=== PATIENT | male | born 1960 | race Caucasian/White ===

== ENCOUNTER 2023-04-05 09:55 | Outpatient (CLI) | payer BC, SELFPAY ==
--- NOTE | ~2023-04-05 | XR_ITS ---
Clinical Indication: Prostate cancer PA and lateral views of the chest: Comparison: None Findings: The lungs are clear, without evidence of focal consolidation or pleural effusion. Cardiome diastinal silhouette is within normal limits. Bones and soft tissues are unremarkable. Impression: Normal chest. Reviewed, dictated and finalized at location . DEVELOPMENT MANAGER Impression: Normal chest.
--- NOTE | 2023-04-05 11:12 | ECG_ITS ---
Measurements Intervals [place] Rate: 65 P: 39 FL: 156 QRS: -1 QRSD: 110 T: 7 QT: 411 QTc: 430 Interpretive Statements SINUS RHYTHM BORDERLINE R WAVE PROGRESSION, ANTERIOR LEADS CONSIDER INFERIOR INFARCT, AGE INDETERMINATE BASELINE ARTIFACT- I, III, AVR, AVL, AVF, V1-V6 ABNORMAL ECG NO PREVIOUS ECG AVAILABLE FOR COMPARISON Electronically Signed On 04-05-2023 11:36:55 [employer] SALES REPRESENTATIVE by Jamel Baltazar D.O.
[2023-04-05 11:54] LABS: Basophils Absolute Auto 0.1 K/mm3 (0.0-0.1); Basophils Percent Auto 0.9 % (0.2-1.2); Eosinophils Absolute Auto 0.1 K/mm3 (0-0.3); Eosinophils Percent Auto 1.9 % (0-4.4); Hematocrit 49.7 % (42.0-52.0); Hemoglobin 16.6 g/dL (14.0-18.0); Immature Granulocyte Absolute 0.01 K/mm3 (0.00-0.031); Immature Granulocyte Percent A 0.2 % (0-0.5); Lymphocytes Absolute Auto 1.49 K/mm3 (0.9-3.2); Lymphocytes Percent Auto 27.6 % (18.3-44.2); Mean Corpuscular HGB Conc 33.4 g/dl (32-36); Mean Corpuscular Hemoglobin 30.2 pg (26-34); Mean Corpuscular Volume 90.4 fl (80-100); Mean Platelet Volume 9.4 fl (7.4-10.4); Monocytes Absolute Auto 0.5 K/mm3 (0.1-0.6); Monocytes Percent Auto 8.5 % (2.6-8.5); Neutrophils Absolute Auto 3.3 K/mm3 (1.3-6.7); Neutrophils Percent Auto 60.9 % (45.5-73.1); Platelet Count Result 239 k/mm3 (150-375); Red Cell Distribution Width 13.4 % (11.5-14.5); White Blood Count 5.4 K/mm3 (4.5-10.0)
[2023-04-05 11:56] LABS: Appearance Urine Clear (Clear); Bilirubin Urine Negative (Negative); Blood Urine Negative (Negative); Color Urine Yellow (Yellow); Glucose Urine UA Negative (Negative); Ketones Urine Negative (Negative); Leukocyte Esterase Ur Negative LEU/UL (Negative); Nitrate Urine Negative (Negative); Protein Urine Negative (Negative); Specific Grav Ur 1.008 (1.001-1.035); Urobilinogen Urine 0.2 mg/dL (<2.0); pH Urine 6.5 (5.0-9.0)
[2023-04-05 11:58] LABS: Add Urine Microscopic? NO
[2023-04-05 12:08] LABS: INR 0.9; Prothrombin Time 12.9 Seconds (11.1-14.7)
[2023-04-05 12:09] LABS: Alanine Aminotransferase 44 U/L (6-50); Albumin Level 4.9 g/dL (3.5-5.1); Alkaline Phosphatase 59 U/L (38-126); Anion Gap 9 mmol/L (8-16); Aspartate Amino Transferase 34 U/L (17-59); Bilirubin,Total 1.2 mg/dL (0.2-1.3); Blood Urea Nitrogen 16 mg/dL (9-20); Calcium 9.4 mg/dL (8.4-10.2); Carbon Dioxide 32 mmol/L (22-30); Chloride 99 mmol/L (98-107); Estimated Glomerular Filt Rate > 60; Glucose 98 mg/dL (65-110); Partial Thromboplastin Time 32.9 SECONDS (22.3-36.8); Potassium 4.2 mmol/L (3.4-5.0); Sodium 140 mmol/L (137-145)
== END 2023-04-05 09:56 | disposition home or self-care (01) ==
PROVIDERS: Visit Provider Urology
DX: C61 Malignant neoplasm of prostate (principal); Z01.818 Encounter for other preprocedural examination; R94.31 Abnormal electrocardiogram [ECG] [EKG]
CPT/HCPCS: 36415; 71046; 80053; 81003; 85025; 85610; 85730; 86850; 86900; 86901; 93005

== ENCOUNTER 2023-04-13 01:49 | Day surgery (SDC) | payer BC, SELFPAY ==
[2023-04-05 10:15] VITALS: BMI 27.1
--- NOTE | 2023-04-05 10:47 | PC.NURSE ---
Report to the Outpatient Waiting Room, entrance under the green pavilion located off [facility], at time __0600 on date _04/13/23 . Planned Procedure Time: __0730 . Time changes happen often and if your time is changed the preop area will call you the afternoon before. - You and your visitor will be asked to self-screen and do not enter if you have any COVID symptoms. - A mask is optional within the hospital at this time. Patients may have clear liquids (water, carbonated beverages, clear teas, apple juice) until 3 hours prior to surgery( 4:30 AM) with a maximum of 20 ounces. - No food from midnight until time of surgery - Infants may have breast milk until 4 hours before surgery, infant formula 6 hours prior to surgery. - Children will be allowed to drink immediately following surgery. If applicable, please bring a bottle or sippy cup to assist with drinking. Juice, water, soda, and popsicles are readily available. For infants on formula, please bring formula the day of surgery. Pacifiers are allowed. Take the following medications with a SIP of water the morning of surgery: __NONE DO NOT STOP ANY OF YOUR OTHER PRESCRIPTION MEDICATIONS PRIOR TO SURGERY ?EXCEPT THE FOLLOWING Medications to discontinue per physician __ALL VITAMINS AND SUPPLEMENTS 3 DAYS PRE OP.LAST DOSE 04/09/23 Please no make-up, nail telugu, hairspray, perfume, deodorant, or body powder the day of surgery. No jewelry (including any body piercings) or valuables the day of surgery, leave them at home. Please take a shower or bath the night before, or the morning of, surgery with an antibacterial soap. Wear comfortable, loose fitting clothing. Children are encouraged to wear pajamas. - Jewelry must be removed prior to entering the operating room. Rings and piercings that are not removed may be cut off. - The hospital will not accept responsibility for valuables. - Please leave all valuables, including medications, at home the day of surgery. If you are going home after surgery, a licensed warehouse delivery driver must drive you home. - NO public transportation without another adult if you receive anesthesia. - We recommend that an adult stay with you for 24 hours following discharge. - We also recommend that you do not drive, make important decision, drink alcoholic beverages, or take any drugs that were not prescribed by your health care provider for at least 24 hours after your discharge time. Follow any additional instructions given to you from your surgeon. If you or anyone in your household have experienced Covid symptoms in the past week, please notify your surgeon or the nurse liaison at the phone number below for possible testing. VERBAL AND WRITTEN instructions given to __PATIENT and asked if any additional questions and then verbalized understanding. Patient advised to call surgeon office or pre surgery nurse liaison [phone] if any additional questions.
--- NOTE | 2023-04-10 07:13 | P.HP_ITS ---
H&P: HPI History of Present Illness Date/Time: 04/10/23 07:13 Chief Complaint: Prostate cancer Narrative: 62-year-old gentleman who was initially diagnosed with prostate cancer in June 2021 after presenting with a PSA of 7.08. Prostate MRI showed suspicious lesions in his gland without evidence of extra prostatic extension or seminal vesicle invasion. There was a very small slightly abnormal area in his right femoral neck which was deemed not to be malignant, particularly given his low PSA. Prostate biopsy demonstrated 5 of 12 cores with [place] grade group 1, representing an NCCN low risk prostate cancer. On confirmatory biopsy 18 months later, however, he was found to have 9 of 12 cores involved with a similar grade prostate cancer. This had progressed to an unfavorable intermediate risk cancer and after discussion of options he is elected to proceed with a robotic prostatectomy with bilateral pelvic lymphadenectomy. He is aware of the alternative treatment options including ongoing active surveillance, radiation therapy and androgen ablation. He is aware of the risks including, but not limited to, adverse cardiopulmonary events, rectal injury, erectile dysfunction and urinary incontinence Review of Systems Cardiovascular: Cardiovascular: Denies chest pain, Denies lightheadedness, Denies palpitations and Denies dyspnea Respiratory: Respiratory: Denies dyspnea Gastrointestinal: Gastrointestinal: Denies diarrhea, Denies nausea and Denies vomiting Genitourinary: Genitourinary: Denies hematuria and Denies dysuria Endocrine: Endocrine: Denies palpitations PMFSH Social History Social History Smoking status: Never smoker Alcohol intake: current Drinks per week: 10 Living arrangements: with family Spiritual care concerns: No Meds Home Medications and Allergies Home Medications Medication Instructions Recorded Confirmed Type ascorbic acid (vitamin C) 1,000 mg 1 g PO DAILY 04/05/23 04/05/23 History tablet atorvastatin 10 mg tablet 5 mg PO DAILY 04/05/23 04/05/23 History multivitamin 1 tablet PO DAILY 04/05/23 04/05/23 History Allergies Allergy/AdvReac Type Severity Reaction Status Date / Time diclofenac AdvReac Hives Verified 04/05/23 10:13 Exam Const: General: no acute distress Resp: Effort & Inspection: normal respiratory effort GI: Inspection: non-distended GI Palp: No abdominal tenderness and No Guarding due to palpation present (GI) Auscultation: normal bowel sounds Assessment and Plan Assessment and plan (1) Prostate cancer: Code(s): C61 - Malignant neoplasm of prostate Status: Acute Assessment and Plan: * robotic assisted radical prostatectomy with bilateral pelvic lymphadenectomy.
[2023-04-13] VITALS (19 sets, daily range): BP systolic 100–133; BP diastolic 66–92; PULSE 66–95; RESP 12–20; TEMP 36.6–37.3; O2SAT 92–100
--- NOTE | 2023-04-13 06:23 | WPDHPUPDATE1 ---
History and Physical Update Update Date/Time: 04/13/23 06:23 History and Physical has been reviewed, including an updated exam of the patient. There are NO changes in the patient's condition. Risks, benefits, and alternatives have been discussed and questions answered. Patient agrees to proceed with procedure.
[2023-04-13] MEDS: LACTATED RINGERS 1,000 ML 30 ML IV CONT ×2 (06:31→10:54)
[2023-04-13] MEDS: SCOPOLAMINE 1 MG PATCH 1 PATCH TRANSDERM (06:32)
--- NOTE | 2023-04-13 07:13 | P.PNAN_ITS ---
Anes - Initial Pre Proc Eval Procedure: Operation Date: 04/13/23 07:30 Proposed Procedures p Robotic Assisted Laparoscopic Prostatectomy with Pelvic Lymph Node Dissection - Holland Champion MD Date/Time: 04/13/23 07:13 Surgeon: Holland Champion MD Pre Op Diagnosis: prostate cancer Patient Data Age: 62 Gender: M Height: 1.83 m Weight: 88.9 kg Last Vital Signs Temp 98.3 F 04/13/23 06:35 Pulse 76 04/13/23 06:35 Resp 16 04/13/23 06:35 BP 131/77 04/13/23 06:35 Pulse Ox 98 04/13/23 06:35 O2 Del Method Room Air 04/13/23 06:35 Allergies Allergy/AdvReac Type Severity Reaction Status Date / Time diclofenac AdvReac Hives Verified 04/13/23 06:10 Home Medications Medication Instructions Recorded Confirmed Type ascorbic acid (vitamin C) 1,000 mg 1 g PO DAILY 04/05/23 04/13/23 History tablet atorvastatin 10 mg tablet 5 mg PO DAILY 04/05/23 04/13/23 History multivitamin 1 tablet PO DAILY 04/05/23 04/13/23 History Patient hx anesthesia problems: post op nausea/vomiting Family hx anesthesia problems: none Results Review: All pre-operative results and documents have been reviewed as part of the pre- operative evaluation. PMFSH Social History Social History Smoking status: Never smoker Alcohol intake: current Drinks per week: 10 Living arrangements: with family Spiritual care concerns: No Anes - Eval Final PreProcedure Day of Procedure 04/13/23 07:13 Patient weight: normal Heart: regular rate and rhythm Lungs: clear to auscultation Airway: Mallampati scale class II Neurological: alert and oriented Last oral intake: >/= 8 hours ASA classification: III Emergent: no Anesthetic plan: proceed Anesthesia type and monitoring: general ETT and standard monitoring Results Review: All pre-operative results and documents have been reviewed as part of the pre- operative evaluation. Informed Consent: The patient's anesthetic plan and its attendant risks and benefits were discussed with the patient/family/POA. Questions were solicited and answers provided to the satisfaction of the patient/family/POA.
[2023-04-13] MEDS: ceFAZolin 2 GM/D5W 50 ML 2 GM/50 ML BAG IVPB (07:29)
--- NOTE | 2023-04-13 10:53 | W.PM.PROC2 ---
Procedure Note - Detailed Date of Procedure 04/13/23 Pre-op Diagnosis Prostate cancer Post-op Diagnosis Same Procedure Performed Robotic assisted radical prostatectomy with bilateral pelvic lymphadenectomy Surgeon Holland Champion MD Border Machine Operator CIPRIANO Holm Anesthesia General Description of Procedure The patient was brought to the operative suite, where he was prepped and draped in routine sterile fashion while in a dorsal lithotomy, deep Trendelenburg position. A supraumbilical 10 mm trocar was placed after insufflation of the abdomen with a Veress needle. Three robotic ports were then placed under direct vision. Two of these were placed in the right lower quadrant - 10 cm and 20 cm lateral to, and in line with, the umbilicus. A third robotic trocar was placed 10 cm to the left of the umbilicus, and 20 cm to the left of the umbilicus, a 12 mm standard laparoscopic trocar was placed to be used as an urgent care physician assistant port. Lastly, a 5 mm trocar was placed in the left upper quadrant midway between the umbilicus and the left robotic trocar. Attention was then turned to the prostatectomy. I opted for a posterior approach in this patient. An incision was made in the parietal peritoneum along the posterior bladder/posterior prostate about 2 cm above the reflection of the peritoneum over the anterior rectum. The seminal vesicles and vas deferens were immediately identified. Dissection is undertaken in a fashion so as to avoid electrocautery as much as possible, particularly near the tips of the seminal vesicles. Dissection was also carried out in the midline so as to avoid any encounters with the ureters. The vas deferens and the seminal vesicles were dissected in their entirety to the base of the prostate. The plane anterior to Denoviller's fascia, anterior to the rectum and posterior to the prostate was then developed. I then dropped the bladder by incising the anterior parietal peritoneum just lateral to the median umbilical ligaments bilaterally. The bladder was dropped from the anterior abdominal and pelvic wall. The endopelvic fascia was identified and incised bilaterally, allowing for dissection of the posterior-lateral aspect of the prostate. The puboprostatic ligaments were transected near their origin from the posterior pubic ramus. This posterior lateral dissection of the prostate is also undertaken in a fashion so as to avoid electrocautery as much as possible. The dorsal vein of the penis is then secured with an 0 -Vicryl ligature. Attention is then turned to the bladder neck. The anterior bladder neck is incised at the vesico-prostatic junction. The previously placed urethral catheter was drawn through the urethrotomy. A very small bladder neck was maintained throughout the remainder of this dissection. The posterior bladder neck was incised in a fashion so as to avoid any injury to the ureteral orifices. Again, the small aperture of the bladder neck was maintained. The previously dissected vas deferens and the seminal vesicles were brought through the posterior bladder neck incision. The lateral prostatic pedicles were then carefully dissected from the lateral aspect of the prostate bilaterally. The prostatic pedicles were secured with Weck clips and transected. The neurovascular bundles were carefully dissected from the posterior-lateral aspect of the prostate. The dorsal vein of the penis was incised with electrocautery. Using cold scissors, the urethra was incised. After withdrawing the previously placed urethral catheter, the posterior urethra was sharply incised, as was the rectalurethralis muscle. Attention was then turned to an extended bilateral pelvic lymphadenectomy. The limits of this dissection were similar bilaterally. Specifically, the limits were the bifurcation of the common iliac vein proximally, the inguinal ligament distally, the obturator nerve posteriorly and the anterior aspect to the external iliac artery lateral
[2023-04-13] MEDS: fentaNYL CITRATE INJ (*CRX) 100 MCG/2 ML VIAL 25 MCG IV PUSH ×7 (11:11→11:41)
[2023-04-13] MEDS: KETOROLAC 30 MG/ML VIAL (*BKC) IV PUSH ×2 (11:25→17:12)
--- NOTE | 2023-04-13 12:38 | SUR.PHASEI ---
1235 - dr. luevano at bedside talking with pt
--- NOTE | 2023-04-13 13:33 | SUR.PHASEI ---
1230: Patient meets PACU discharge criteria, unit bed unavailable at this time. Patient placed in extended recovery status.
[2023-04-13] MEDS: LACTATED RINGERS 1,000 ML 125 ML IV CONT (17:13)
[2023-04-13] MEDS: HYDROcodone/acetaminophen (*CRX) 5-325 MG TABLET PO (20:55)
[2023-04-14] MEDS: LACTATED RINGERS 1,000 ML 125 ML IV CONT (00:24)
[2023-04-14 00:50] VITALS: BP 102/65; PULSE 74; RESP 16; TEMP 37; O2SAT 92
[2023-04-14 05:35] VITALS: BP 98/70; PULSE 72; RESP 16; TEMP 36.1; O2SAT 93
--- NOTE | 2023-04-14 06:39 | WPDUROPN2 ---
Progress Note: A&P Assessment and Plan (1) Prostate cancer: Code(s): C61 - Malignant neoplasm of prostate Status: Acute Assessment and Plan: Doing well POD #1 Ambulate/increase diet. Anticipate discharge this afternoon. Subjective Subjective Date/Time Seen: 04/14/23 06:39 Interval history: Comfortable, no complaints Review of Systems Cardiovascular: Cardiovascular: Denies chest pain, Denies lightheadedness, Denies palpitations and Denies dyspnea Respiratory: Respiratory: Denies dyspnea Gastrointestinal: Gastrointestinal: Denies diarrhea, Denies nausea and Denies vomiting Genitourinary: Genitourinary: Denies hematuria and Denies dysuria Endocrine: Endocrine: Denies palpitations Objective Data Vital Signs Vital Signs: Vital Signs - 24 hr 04/13/23 10:54 04/13/23 11:05 04/13/23 11:15 Temperature 97.8 F Pulse Rate 81 89 95 Respiratory Rate 13 16 18 Blood Pressure 133/92 H 125/84 130/89 Pulse Oximetry 99 100 100 Oxygen Delivery Simple Face Mask Simple Face Mask Simple Face Mask Oxygen Flow Rate 8 8 8 04/13/23 11:30 04/13/23 11:45 04/13/23 12:00 Temperature Pulse Rate 89 91 89 Respiratory Rate 12 18 16 Blood Pressure 132/92 H 120/77 101/73 Pulse Oximetry 96 96 95 Oxygen Delivery Nasal Cannula Nasal Cannula Nasal Cannula Oxygen Flow Rate 2 2 2 04/13/23 12:15 04/13/23 12:30 04/13/23 12:45 Temperature Pulse Rate 92 89 93 Respiratory Rate 20 12 12 Blood Pressure 105/72 105/72 100/71 Pulse Oximetry 95 95 96 Oxygen Delivery Room Air Nasal Cannula Nasal Cannula Oxygen Flow Rate 2 2 04/13/23 13:00 04/13/23 13:15 04/13/23 13:45 Temperature Pulse Rate 86 88 86 Respiratory Rate 12 12 12 Blood Pressure 107/75 109/76 107/72 Pulse Oximetry 95 96 96 Oxygen Delivery Nasal Cannula Room Air Nasal Cannula Oxygen Flow Rate 2 2 04/13/23 15:30 04/13/23 15:45 04/13/23 16:15 Temperature 98.1 F 98.8 F 98.4 F Pulse Rate 82 85 84 Respiratory Rate 17 18 18 Blood Pressure 102/72 105/68 115/73 Pulse Oximetry 94 94 95 Oxygen Delivery Oxygen Flow Rate 04/13/23 17:15 04/13/23 16:30 04/13/23 20:00 Temperature 98.2 F Pulse Rate 74 Respiratory Rate 16 Blood Pressure 109/66 Pulse Oximetry 93 93 Oxygen Delivery Room Air Room Air Oxygen Flow Rate 04/13/23 21:10 04/14/23 00:50 Temperature 99.1 F 98.6 F Pulse Rate 66 74 Respiratory Rate 20 16 Blood Pressure 118/67 102/65 Pulse Oximetry 92 92 Oxygen Delivery Oxygen Flow Rate Intake/Output Intake/Output: Intake & Output 04/11/23 04/12/23 04/13/23 04/14/23 23:59 23:59 23:59 23:59 Intake Total 1580 1000 Output Total 80 Balance 1500 1000 Meds/Results Medications: Active Medications Generic Name Dose Route Start Last Admin Trade Name Freq PRN Reason Stop Dose Admin Hydrocodone Bitart/Acetaminophen 1 - 2 tab 04/13/23 15:00 04/13/23 20:55 Hydrocodone/Acetaminophen (*Crx) 5-325 Mg Tablet PO 1 tab Q6H PRN Administration Pain Rated 8-10 Atorvastatin Calcium 5 mg 04/14/23 09:00 Atorvastatin 5 Mg Tablet PO DAILY TUCKER Hyoscyamine 0.125 mg 04/13/23 15:19 Hyoscyamine Sulfate 0.125 Mg Tablet SUBLINGUAL Q4H PRN Bladder Spasm Lactated Ringer's 1,000 mls @ 125 mls/hr 04/13/23 15:19 04/14/23 00:24 Lr - Lactated Ringers Iv IV CONT 125 mls/hr .Q8H TUCKER Administration Ketorolac Tromethamine 30 mg 04/13/23 15:19 04/13/23 17:12 Ketorolac 30 Mg/Ml Vial (*Bkc) IV PUSH 04/14/23 15:18 30 mg Q6H PRN Administration Pain Rated 4-6 Levofloxacin 500 mg 04/14/23 09:00 Levofloxacin 500 Mg Tablet PO DAILY TUCKER Naloxone HCl 0.1 mg 04/13/23 15:19 Naloxone Hcl 0.4 Mg/Ml Vial IV PUSH Q2M PRN Opiate Reversal
[2023-04-14 07:04] LABS: Hematocrit 39.2 % (42.0-52.0)
[2023-04-14 07:18] LABS: Anion Gap 8 mmol/L (8-16); Blood Urea Nitrogen 13 mg/dL (9-20); Calcium 8.3 mg/dL (8.4-10.2); Carbon Dioxide 26 mmol/L (22-30); Chloride 102 mmol/L (98-107); Estimated CRCL calculation 83 ml/min; Estimated Glomerular Filt Rate > 60; Glucose 100 mg/dL (65-110); Potassium 3.9 mmol/L (3.4-5.0); Sodium 136 mmol/L (137-145)
--- NOTE | 2023-04-14 07:26 | WPDANESPN ---
Anes - Prog Note Post-Op Date/Time: 04/14/23 07:26 Cardiovascular status: normal Respiratory status: normal Airway patency: baseline Mental status: baseline Post-Op hydration status: normal Vital Signs: Last Vital Signs Temp 96.9 F L 04/14/23 05:35 Pulse 72 04/14/23 05:35 Resp 16 04/14/23 05:35 BP 98/70 L 04/14/23 05:35 Pulse Ox 93 04/14/23 05:35 O2 Del Method Room Air 04/13/23 20:00 O2 Flow Rate 2 04/13/23 13:45 Pain Score (VAS): 7 called for pain pill. Last one 2199 I/O: Intake & Output 04/13/23 04/13/23 04/14/23 15:59 23:59 07:59 Intake Total 568 594 8696 Output Total 80 1600 Balance 620 830 -250 Laboratory Tests 04/14/23 06:16 04/14/23 06:16 04/14/23 06:16 Hgb 13.0 L D Hct 39.2 L Sodium 136 L Potassium 3.9 Chloride 102 Carbon Dioxide 26 Anion Gap 8 BUN 13 Creatinine 0.90 Estim Creat Clear Calc 83 Estimated GFR > 60 Glucose 100 Calcium 8.3 L Post-procedural complaints: none Patient Feedback: Patient satisfied with anesthetic care.
[2023-04-14] MEDS: levoFLOXacin 500 MG TABLET PO (07:56)
[2023-04-14] MEDS: HYDROcodone/acetaminophen (*CRX) 5-325 MG TABLET PO (07:56)
[2023-04-14] MEDS: ATORVASTATIN 5 MG TABLET PO (07:57)
[2023-04-14 08:05] VITALS: BP 127/75; PULSE 70; RESP 16; TEMP 36.2; O2SAT 98
== END 2023-04-14 12:10 | disposition home or self-care (01) ==
LOC: ANHSURGERY 06:34 → ANH3MEDSUR 16:14
PROVIDERS: Visit Provider Urology
PROC: 0VT04ZZ Resection of Prostate, Percutaneous Endoscopic Approach (ICD-10-PCS; CPT 55867; principal; 2023-04-13 07:30)
DX: C61 Malignant neoplasm of prostate (principal)
CPT/HCPCS: 55866; 38571; 36415; 80048; 85014; 85018; 88305; 88309; A9270; J0330; J0690; J1100; J1170; J1885; J2250; J2405; J2704; J3010; J7030; J7120

== ENCOUNTER 2023-04-21 11:34 | Outpatient (CLI) | payer BC, SELFPAY ==
--- NOTE | ~2023-04-21 | XR_ITS ---
EXAMINATION: CYSTOGRAM DATE: 04/21/2023 12:19 INDICATION: Status post prostatectomy for prostate cancer TECHNIQUE: Initial wood room hand radiograph of the pelvis was performed. There was retrograde administration of Omnipaque 350 mixed with saline contrast into patient's existing Wilkerson catheter. Fluoroscopic stella ges of the pelvis were obtained. A post-void image was also performed. Fluoroscopy exposure time was 0.3 minutes. A total of 9 fluoroscopic images and one overhead radiograph were obtained. Total DAP wa s 12.109 mGycm^2. FINDINGS: Tapered configuration of the junction of the bladder and ureter consistent with prior prostatectomy. No extraluminal contrast extravasation. Mucosal contour of the bladder is unremarkable. No vesicouret eral reflux. IMPRESSION: 1. No evident extraluminal contrast leak post recent prostatectomy. Reviewed, dictated and finalized at location A. ILES PRINTER
== END 2023-04-21 11:35 | disposition home or self-care (01) ==
LOC: ANHIMG 11:35
PROVIDERS: Visit Provider Urology
DX: C61 Malignant neoplasm of prostate (principal)
CPT/HCPCS: 51600; 74430; Q9967